=== PATIENT | female | born 1970 | race Caucasian/White ===

== ENCOUNTER → 2023-07-02 08:19 | Outpatient (REF) | payer OTHER, BC, SELFPAY ==
[2023-07-02 09:57] LABS: Free T4 1.01 ng/dl (0.78-2.19); Vitamin D, 25-OH*** 49.6 ng/mL (30-80)
[2023-07-02 09:59] LABS: Free T3 4.16 pg/ml (2.77-5.27)
[2023-07-02 10:55] LABS: Estradiol 39.9 pg/ml; Testosterone, Total 80.3 ng/dl
[2023-07-02 14:33] LABS: FSH 34.7 mIU/ml
== END ==
LOC: REG 08:19
PROVIDERS: ATTENDING PHYSICIAN Family Medicine Sports Medicine
DX: E34.9 Endocrine disorder, unspecified (principal); R53.83 Other fatigue; E03.9 Hypothyroidism, unspecified
CPT/HCPCS: 36415; 82306; 82670; 83001; 84403; 84439; 84443; 84481

== ENCOUNTER → 2024-06-11 08:39 | Outpatient (REF) | payer BC, SELFPAY ==
[2024-06-11 09:39] LABS: % Basophils 1.2 % (0-2); % Eosinophils 1.2 % (0-6); % Immature Granulocytes 0.2 % (0-0.5); % Lymphocytes 35.7 % (20.5-51.1); % Neutrophils 56.7 % (42.2-75.2); Absolute Basophils 0.1 10^3/uL (0-0.2); Absolute Eosinophils 0.1 10^3/uL (0-0.7); Absolute Lymphocytes 1.5 10^3/uL (1.2-3.4); Absolute Monocytes 0.2 10^3/uL (0.1-0.6); Absolute Neutrophils 2.4 10^3/uL (1.4-6.5); Hematocrit 43.1 % (37.0-47.0); Mean Corp Hgb Conc. 32.5 g/dL (33.0-37.0); Mean Corpuscular Hgb 29.2 pg (27.0-31.0); Mean Platelet Volume 10.7 fL (7.4-10.4); Nucleated Red Blood Cells % 0 %; Platelet Count 251 10^3/uL (130-400); Red Blood Cell Count 4.79 10^6/uL (4.20-5.40); Red Cell Dist. Width 12.3 % (11.5-14.5); White Blood Cell Count 4.2 10^3/uL (4.8-10.8)
[2024-06-11 10:07] LABS: ALT (SGPT) 36 U/L (0-35); AST (SGOT) 37 U/L (14-36); Albumin 4.6 g/dl (3.5-5.0); Alkaline Phosphatase 83 U/L (38-126); Blood Urea Nitrogen 16 mg/dl (7-17); Calcium 9.4 mg/dl (8.4-10.2); Carbon Dioxide 30 mmol/L (22-30); Chloride 100 mmol/L (98-107); Glucose 79 mg/dl (70-99); HDL Cholesterol 75 mg/dl; LDL Cholesterol, Calculated 102 mg/dl; Potassium 4.4 mmol/L (3.5-5.1); Sodium 138 mmol/L (135-145); Total Bilirubin 0.3 mg/dl (0.2-1.3); Total Cholesterol 186 mg/dl (50-199); Total Protein 7.3 g/dl (6.3-8.2); Triglyceride 47 mg/dl (10-149); Very Low Density Lipoprotein 9 mg/dl (0-30); eGFR > 60.00
[2024-06-11 10:23] LABS: FSH 39.4 mIU/ml; Free T4 1.07 ng/dl (0.78-2.19); Vitamin D, 25-OH*** 45.1 ng/mL (30-80)
[2024-06-11 10:36] LABS: TSH 1.48 uIU/ml (0.47-4.68)
[2024-06-11 10:38] LABS: Estradiol 63.4 pg/ml; Testosterone, Total 21.5 ng/dl
[2024-06-11 10:43] LABS: Ferritin 63.3 ng/ml (11.1-264.0)
[2024-06-11 10:57] LABS: Vitamin B12 784 pg/ml (239-931)
[2024-06-12 17:54] LABS: Thyroid Peroxidase Ab (TPO) 22.9 IU/mL (0.0-9.0)
[2024-06-14 07:47] LABS: Free Testosterone 1.6 pg/mL (0.6-3.8); Sex Hormone Binding Globulin 119 nmol/L (17-125); Total Testosterone,Female/Chil 24 ng/dL (9-55)
== END ==
LOC: REG 08:39
PROVIDERS: ATTENDING PHYSICIAN Nurse Practitioner Women's Health; FAMILY PHYSICIAN Family Medicine
DX: E55.9 Vitamin D deficiency, unspecified (principal); N95.1 Menopausal and female climacteric states
CPT/HCPCS: 36415; 80053; 80061; 82306; 82607; 82670; 82728; 83001; 84270; 84402; 84403; 84439; 84443; 84481; 85025; 86376

== ENCOUNTER → 2024-06-15 11:53 | Outpatient (REF) | payer BC, SELFPAY | LOC: CPAP 11:53 | PROVIDERS: ATTENDING PHYSICIAN Nurse Practitioner Family | DX: Z01.419 Encounter for gynecological examination (general) (routine) without abnormal findings (principal); Z11.51 Encounter for screening for human papillomavirus (HPV) | CPT/HCPCS: 87624 ==

== ENCOUNTER 2024-07-19 06:23 | Day surgery (SDC) | payer BC, SELFPAY | END 2024-07-19 09:44 | disposition home or self-care (01) | LOC: GI 06:23 | PROVIDERS: ATTENDING PHYSICIAN Internal Medicine Gastroenterology | DX: Z12.11 Encounter for screening for malignant neoplasm of colon (principal); K63.89 Other specified diseases of intestine; K64.0 First degree hemorrhoids; D12.0 Benign neoplasm of cecum; D12.2 Benign neoplasm of ascending colon; D12.3 Benign neoplasm of transverse colon | CPT/HCPCS: 45385; 45381; 45380; 88305 ==

== ENCOUNTER → 2024-08-16 08:26 | Outpatient (REF) | payer BC, SELFPAY | LOC: WDC 08:26 | PROVIDERS: ATTENDING PHYSICIAN Nurse Practitioner Family | DX: R92.8 Other abnormal and inconclusive findings on diagnostic imaging of breast (principal) | CPT/HCPCS: 76642; 77061; 77065 ==

== ENCOUNTER → 2024-10-28 08:07 | Outpatient (REF) | payer BC, SELFPAY ==
[2024-10-28 10:36] LABS: FSH 39.1 mIU/ml; Free T4 1.05 ng/dl (0.78-2.19)
[2024-10-28 10:37] LABS: Free T3 2.93 pg/ml (2.77-5.27)
[2024-10-28 10:50] LABS: TSH 1.49 uIU/ml (0.47-4.68)
[2024-10-28 10:51] LABS: Estradiol 42.7 pg/ml
[2024-10-29 20:25] LABS: Thyroid Peroxidase Ab (TPO) 36.5 IU/mL (0.0-9.0)
== END ==
LOC: REG 08:07
PROVIDERS: ATTENDING PHYSICIAN Nurse Practitioner Women's Health; FAMILY PHYSICIAN Physician Assistant
DX: N95.1 Menopausal and female climacteric states (principal); R53.82 Chronic fatigue, unspecified
CPT/HCPCS: 36415; 82670; 83001; 84270; 84402; 84403; 84439; 84443; 84481; 86376

== ENCOUNTER → 2025-02-15 14:24 | Outpatient (REF) | payer BC, SELFPAY | LOC: WDC 14:24 | PROVIDERS: ATTENDING PHYSICIAN Obstetrics & Gynecology | DX: R92.8 Other abnormal and inconclusive findings on diagnostic imaging of breast (principal) | CPT/HCPCS: 76642 ==